=== PATIENT | male | born 1975 | race Two or more races ===

== ENCOUNTER 2017-08-14 02:52 | Emergency (ER) | payer SELFPAY ==
--- NOTE | 2017-08-14 03:05 | EDM.PDOC ---
ED HPI GENERAL MEDICAL PROBLEM - General Chief Complaint: Chest Pain Stated Complaint: CHEST PAIN Time Seen by Provider: 08/14/17 03:04 Source of Information: Reports: Patient History Limitations: Reports: Language Barrier - History of Present Illness INITIAL COMMENTS - FREE TEXT/NARRATIVE: Patient comes in with a 2 to 3 day history of midsternal chest pain does not radiate up to the neck. Patient was seen in the [facility] area for neck discomfort and was placed on amoxicillin. He does not know the diagnosis that he was given. Patient denies any nausea, vomiting, dizziness, lightheaded , or shortness of breath. States of midsternal pain is centrally located does not radiate of the neck that radiates back. Does believe that it hurts a little bit more a takes a deep breath but does not state that it is alleviated by resting. Patient denies having similar symptoms in the past. Patient does have low bit of a language barrier however does seem to be understanding most questions appropriately. Onset: Sudden Onset Date: 08/12/17 Associated Symptoms: Denies: Confusion, Cough, cough w sputum, Diaphoresis, Fever/Chills, Headaches, Loss of Appetite, Malaise, Nausea/Vomiting, Rash, Seizure, Shortness of Breath, Syncope, Weakness Chest Pain Score (Numeric/FACES): 8 - Related Data Allergies Allergy/AdvReac Type Severity Reaction Status Date / Time No Known Allergies Allergy Verified 08/14/17 02:54 Home Meds: Home Meds . [No Known Home Meds] 08/14/17 [History] ED ROS GENERAL - Review of Systems Review Of Systems: See Below Constitutional: Reports: No Symptoms HEENT: Reports: Other (neck pain ) Respiratory: Reports: No Symptoms Cardiovascular: Reports: No Symptoms Endocrine: Reports: No Symptoms GI/Abdominal: Reports: No Symptoms : Reports: No Symptoms Musculoskeletal: Reports: No Symptoms Skin: Reports: No Symptoms Neurological: Reports: No Symptoms Psychiatric: Reports: No Symptoms ED EXAM, GENERAL - Physical Exam Exam: See Below Exam Limited By: Language Barrier General Appearance: Alert, WD/WN, No Apparent Distress Nose: Normal Inspection Throat/Mouth: Normal Inspection, Normal Lips, Normal Gums, Normal Voice, No Airway Compromise Head: Atraumatic, Normocephalic Neck: Normal Inspection, Non-Tender, Full Range of Motion. No: Carotid Bruit, Limited Range of Motion, Lymphadenopathy (L), Lymphadenopathy (R) Respiratory/Chest: No Respiratory Distress, Lungs Clear, Normal Breath Sounds, No Accessory Muscle Use, Chest Non-Tender Cardiovascular: Normal Peripheral Pulses, Regular Rate, Rhythm, No Edema, No Gallop, No JVD, No Murmur, No Rub Peripheral Pulses: 2+: Carotid (L), Carotid (R), Radial (L), Radial (R), Dorsalis Pedis (L), Dorsalis Pedis (R) GI/Abdominal: Normal Bowel Sounds, Soft, Non-Tender, No Distention, No Abnormal Bruit, No Mass Back Exam: Normal Inspection, Full Range of Motion Neurological: Alert, Oriented, Normal Cognition, Normal Gait, No Motor/Sensory Deficits Psychiatric: Normal Affect, Normal Mood Skin Exam: Warm, Dry, Intact, Normal Color, No Rash Lymphatic: No Adenopathy EKG INTERPRETATION Rhythm: NSR Course - Vital Signs Last Recorded V/S: Last Vital Signs Temp 36.6 C 08/14/17 03:02 Pulse 119 H 08/14/17 04:27 Resp 19 08/14/17 04:27 BP 130/83 08/14/17 04:27 Pulse Ox 97 08/14/17 04:27 - Orders/Labs/Meds Orders: Active Orders 24 hr Category Date Time Status EKG Documentation Completion [RC] URGENT Care 08/14/17 02:58 Active Chest 1V Frontal [CR] Stat Exams 08/14/17 02:59 Taken Heparin Sodium/0.45% NaCl [Heparin 25,000 Units in 1/2 Med 08/14/17 04:15 Active NS 500 ML] 25,000 units in 500 ml IV TITRATE Metoprolol Tartrate [Lopressor] Med 08/14/17 05:09 Once 12.5 mg PO ONETIME ONE Sodium Chloride 0.9% [Saline Flush] Med 08/14/17 04:11 Active 10 ml FLUSH ASDIRECTED PRN Peripheral IV Insertion Adult [OM.PC] Routine Oth 08/14/17 04:11 Ordered Medication Orders Heparin Sodium/Sodium Chloride (Heparin 25,000 Units In 1/2 Ns 500 Ml) 25,000 units in 500 mls @ 20 mls/hr IV TITRATE ANDREY; 1,000 UNITS/HR PRN Reason: Protocol Sodium Chloride (Saline Flush) 10 ml FLUSH ASDIRECTED PRN PRN Reason: Keep Vein Open Labs: Laboratory Tests 08/14/17 08/14/17 08/14/17 Range/Units 03:20 03:20 03:20 WBC 11.6 H (4.0-10.0) x10^3/uL RBC 5.47 (4.5-6.0) x10^6/uL Hgb 16.2 (14.0-18.0) g/dL Hct 48.3 (40.0-52.0) % MCV 88.3 (78.0-93.0) fL MCH 29.6 (26.0-32.0) pg MCHC 33.5 (32.0-36.0) g/dL RDW Coeff of Adela 13.3 (10.0-15.0) % Plt Count 259 (130-400) x10^3/uL Add Manual Diff Yes Neutrophils % (Manual) 53 (50-80) % Band Neutrophils % 7 H (0-6) % Lymphocytes % (Manual) 40 (25-50) % Platelet Estimate Adequate PT (9.8-11.8) SEC INR (2.0-3.5) APTT (22.0-34.0) SEC D-Dimer, Quantitative 0.37 (<=0.58) mg/LFEU Sodium 141 (136-145) mmol/L Potassium 4.2 (3.5-5.1) mmol/L Chloride 102 (98-107) mmol/L Carbon Dioxide 29 (21-32) mmol/L BUN 15 (7-18) mg/dL Creatinine 1.3 (0.70-1.30) mg/dL Est Cr Clr Drug Dosing TNP Estimated GFR (MDRD) > 60 Glucose 114 H (74-106) mg/dL Calcium 9.3 (8.5-10.1) mg/dL Corrected Calcium 9.54 (8.5-10.1) mg/dL Total Bilirubin 1.4 H (0.2-1.0) mg/dL AST 89 H (15-37) U/L ALT 29 (16-63) U/L Alkaline Phosphatase 100 (46-116) U/L Creatine Kinase (39-308) U/L Creatine Kinase Index (0.0-4.0) % CK-MB (CK-2) (0.0-3.6) ng/mL Troponin I 15.975 H* (<=0.056) ng/mL Total Protein 8.4 H (6.4-8.2) g/dL Albumin 3.7 (3.4-5.0) g/dL Globulin 4.7 Albumin/Globulin Ratio 0.79 08/14/17 08/14/17 08/14/17 Range/Units 03:20 03:20 03:20 WBC (4.0-10.0) x10^3/uL RBC (4.5-6.0) x10^6/uL Hgb (14.0-18.0) g/dL Hct (40.0-52.0) % MCV (78.0-93.0) fL MCH (26.0-32.0) pg MCHC (32.0-36.0) g/dL RDW Coeff of Adela (10.0-15.0) % Plt Count (130-400) x10^3/uL Add Manual Diff Neutrophils % (Manual) (50-80) % Band Neutrophils % (0-6) % Lymphocytes % (Manual) (25-50) % Platelet Estimate PT 10.3 (9.8-11.8) SEC INR 1.0 L (2.0-3.5) APTT 27.2 (22.0-34.0) SEC D-Dimer, Quantitative (<=0.58) mg/LFEU Sodium (136-145) mmol/L Potassium (3.5-5.1) mmol/L Chloride (98-107) mmol/L Carbon Dioxide (21-32) mmol/L BUN (7-18) mg/dL Creatinine (0.70-1.30) mg/dL Est Cr Clr Drug Dosing Estimated GFR (MDRD) Glucose (74-106) mg/dL Calcium (8.5-10.1) mg/dL Corrected Calcium (8.5-10.1) mg/dL Total Bilirubin (0.2-1.0) mg/dL AST (15-37) U/L ALT (16-63) U/L Alkaline Phosphatase (46-116) U/L Creatine Kinase 621 H* (39-308) U/L Creatine Kinase Index 5.7 H (0.0-4.0) % CK-MB (CK-2) 35.1 H (0.0-3.6) ng/mL Troponin I (<=0.056) ng/mL Total Protein (6.4-8.2) g/dL Albumin (3.4-5.0) g/dL Globulin Albumin/Globulin Ratio Meds: Medications Generic Name Dose Route Start Last Admin Trade Name Frecesar PRN Reason Stop Dose Admin Heparin Sodium/Sodium Chloride 25,000 units in 500 mls @ 20 mls/hr 08/14/17 04 :15 Heparin 25,000 Units In 1/2 Ns 500 Ml IV TITRATE ANDREY Protocol 1,000 UNITS/HR Sodium Chloride 10 ml 08/14/17 04:11 Saline Flush FLUSH ASDIRECTED PRN Keep Vein Open Discontinued Medications Generic Name Dose Route Start Last Admin Trade Name Frecesar PRN Reason Stop Dose Admin Al Hydroxide/Mg Hydroxide Confirm 08/14/17 03:13 Gi Cocktail Administered 08/14/17 03:14 Dose 30 ml .ROUTE .STK-MED ONE Aspirin 324 mg 08/14/17 04:10 08/14/17 04:24 Aspirin PO 08/14/17 04:11 324 mg ONETIME ONE Administration Al Hydroxide/Mg Hydroxide 10 0 ml 08/14/17 02:58 08/14/17 03:16 ml/ Lidocaine HCl 10 ml/ PO 08/14/17 02:59 30 ml Promethazine HCl 12.5 mg ONETIME ONE Administration Heparin Sodium (Porcine) 4,000 units 08/14/17 04:12 08/14/17 04:43 Heparin Sodium IVPUSH 08/14/17 04:13 4,000 units .BOLUS ONE Administration Metoprolol Tartrate 12.5 mg 08/14/17 05:09 Lopressor PO 08/14/17 05:10 ONETIME ONE Metoprolol Tartrate Confirm 08/14/17 05:11 Lopressor Administered 08/14/17 05:12 Dose 25 mg .ROUTE .STK-MED ONE Nitroglycerin 1 gm 08/14/17 04:39 08/14/17 04:44 Nitro-Bid 2% TOP 08/14/17 04:40 1 gm ONETIME ONE Administration - Radiology Interpretation Free Text/Narrative:: chest xray- neg - Re-Assessments/Exams Free Text/Narrative Re-Assessment/Exam: 08/14/17 04:08 conctact made with [facility] at [phone] regarding pt's troponin. One call stated they would have the hospitalist and cardiology call back once they have been reached. 08/14/17 04:38 [facility] called back with Dr. Almodovar Section Supervisor and Hospitalist physician compensation analyst. They will go ahead and admit the pt. 08/14/17 04:48 Pt's VSS- no changes in assessment findings. Chest pain 0/10 right now. Use of telephone tourist adviser used to help clinically treat the pt. Departure - Departure Time of Disposition: 04:45 Disposition: Admitted As Inpatient 68 Condition: Good Clinical Impression: Non-STEMI (non-ST elevated myocardial infarction), Acute coronary syndrome Referrals: PCP,Unobtain [Primary Care Provider] - Forms: ED Department Discharge, Interfacility Transfer EMTALA - My Orders Last 24 Hours: My Active Orders 08/14/17 02:58 EKG Documentation Completion [RC] URGENT 08/14/17 02:59 Chest 1V Frontal [CR] Stat 08/14/17 04:11 Sodium Chloride 0.9% [Saline Flush] 10 ml FLUSH ASDIRECTED PRN Peripheral IV Insertion Adult [OM.PC] Routine 08/14/17 04:15 Heparin Sodium/0.45% NaCl [Heparin 25,000 Units in 1/2 NS 500 ML] 25,000 units in 500 ml IV TITRATE 08/14/17 05:09 Metoprolol Tartrate [Lopressor] 12.5 mg PO ONETIME ONE - Assessment/Plan Last 24 Hours: My Active Orders 08/14/17 02:58 EKG Documentation Completion [RC] URGENT 08/14/17 02:59 Chest 1V Frontal [CR] Stat 08/14/17 04:11 Sodium Chloride 0.9% [Saline Flush] 10 ml FLUSH ASDIRECTED PRN Peripheral IV Insertion Adult [OM.PC] Routine 08/14/17 04:15 Heparin Sodium/0.45% NaCl [Heparin 25,000 Units in 1/2 NS 500 ML] 25,000 units in 500 ml IV TITRATE 08/14/17 05:09 Metoprolol Tartrate [Lopressor] 12.5 mg PO ONETIME ONE
[2017-08-14] MEDS ORDERED: GI Cocktail Oral Solution 30 ML ONE (03:13)
[2017-08-14] MEDS: Alum Hydroxide/Mag Hydroxide 10 ML, Lidocaine 2% 10 ML, Promethazine 12.5 MG PO ONE ×3 (03:16)
[2017-08-14] MEDS ORDERED: Sodium Chloride 0.9% 10 ML Syringe FLUSH PRN (04:11)
[2017-08-14 04:12] LABS: CHLORIDE,CL 102 mmol/L (98-107); SODIUM,NA 141 mmol/L (136-145)
[2017-08-14] MEDS ORDERED: Heparin Sodium/0.45% NaCl 25,000 UNITS/500 ML BAG IV SCH (04:15)
[2017-08-14] MEDS: Aspirin 81 MG Tab.Chew PO ONE (04:24)
[2017-08-14] MEDS: Heparin Sodium 5,000 Units/ML Vial IVPUSH ONE (04:43)
[2017-08-14] MEDS: Nitroglycerin 2% Oint 1 GM UD Packet TOP ONE (04:44)
[2017-08-14] MEDS ORDERED: Metoprolol Tartrate 25 MG Tab ONE (05:11)
[2017-08-14] MEDS: Metoprolol Tartrate 25 MG Tab PO ONE (05:11)
== END 2017-08-14 05:12 | disposition critical access hospital (66) ==
LOC: VM.ED 02:52
DX: I21.4 Non-ST elevation (NSTEMI) myocardial infarction (principal)
CPT/HCPCS: 36415; 71045; 80053; 82550; 82553; 84484; 85025; 85379; 85610; 85730; 93005; 96365; 96376; 99285; A9270; J1644